=== PATIENT | male | born 1965 | race Caucasian/White ===

== ENCOUNTER 2022-09-02 12:33 | Emergency (ER) | payer MEDICAID, OTHER ==
[~2022-09-02] VITALS: Ht 160 cm; Wt 79.4 kg
[2022-09-02 12:39] VITALS: BP 143/94
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
[2022-09-02] MEDS ORDERED: METH-1681 PO (13:54)
[2022-09-02] MEDS ORDERED: IBUP-2213 PO (13:54)
[2022-09-02] MEDS ORDERED: BACI28.43 TP (13:54)
[2022-09-02] MEDS ORDERED: IBUPROFEN 600 MG TAB PO ONE (13:55)
== END 2022-09-02 14:05 | disposition home or self-care (01) ==
LOC: MED 12:33
DX: S16.1XXA Strain of muscle, fascia and tendon at neck level, initial encounter (principal); S00.83XA Contusion of other part of head, initial encounter; S50.312A Abrasion of left elbow, initial encounter; S50.812A Abrasion of left forearm, initial encounter; S30.1XXA Contusion of abdominal wall, initial encounter; Z79.899 Other long term (current) drug therapy; Z79.1 Long term (current) use of non-steroidal anti-inflammatories (NSAID); Z79.2 Long term (current) use of antibiotics; Y04.8XXA Assault by other bodily force, initial encounter; Y93.89 Activity, other specified; Y92.89 Other specified places as the place of occurrence of the external cause; Y99.8 Other external cause status
CPT/HCPCS: 99283

== ENCOUNTER 2022-10-31 12:44 | Emergency (ER) | payer OTHER ==
[~2022-10-31] VITALS: Ht 160 cm; Wt 80.3 kg
[~2022-10-31 12:44] MED LIST: BACI28.43 TP; IBUP-2213 PO; METH-1681 PO
[2022-10-31 13:12] VITALS: BP 141/80
[2022-10-31] MEDS ORDERED: FLUORESCEIN OPTH STRIP 1 MG OP ONE (13:45)
[2022-10-31] MEDS ORDERED: OFLOS LEFT EYE (14:06)
--- NOTE | 2022-10-31 14:25 | NUR ---
Patient discharged with v/s stable. Written and verbal after care instructions given and explained. Patient alert, oriented and verbalized understanding of instructions. Ambulatory with steady gait. All questions addressed prior to discharge. ID band removed. Patient advised to follow up with PMD. Rx of OFLOXACIN given. Patient educated on indication of medication including possible reaction and side effects. Opportunity to ask questions provided and answered.
== END 2022-10-31 14:23 | disposition home or self-care (01) ==
LOC: MED 12:44
DX: H11.002 Unspecified pterygium of left eye (principal); I10 Essential (primary) hypertension; Z79.899 Other long term (current) drug therapy; Z79.2 Long term (current) use of antibiotics; Z79.1 Long term (current) use of non-steroidal anti-inflammatories (NSAID)
CPT/HCPCS: 99283

== ENCOUNTER 2024-01-15 02:30 | Emergency (ER) | payer OTHER ==
[~2024-01-15] VITALS: Ht 160 cm; Wt 79.4 kg
[~2024-01-15 02:30] MED LIST changes: +OFLOS LEFT EYE
[2024-01-15 02:33] VITALS: BP 204/115; PULSE 77; RESP 18; TEMP 97.1; O2SAT 100
[2024-01-15 02:56] LABS: BASOPHILS # (AUTO) 0.1 K/uL (0.00-0.22); BASOPHILS % (AUTO) 0.4 % (0.0-2.0); EOSINOPHILS % (AUTO) 0.3 % (0.0-4.0); HEMATOCRIT 45.3 % (36-52); HEMOGLOBIN 15.1 g/dL (12.0-18.0); LYMPHOCYTES # (AUTO) 4.5 K/uL (2.0-11.5); LYMPHOCYTES % (AUTO) 32.6 % (20.5-51.1); MEAN CORPUSCULAR HEMOGLOBIN 30 pg (27-31); MEAN CORPUSCULAR HGB CONC 33 g/dL (33-37); MEAN CORPUSCULAR VOLUME 88.7 fL (80-94); MONOCYTES # (AUTO) 1.5 K/uL (0.8-1.0); MONOCYTES % (AUTO) 11.1 % (1.7-9.3); NEUTROPHILS # (AUTO) 7.7 K/uL (1.8-7.7); NEUTROPHILS % (AUTO) 55.6 % (42.2-75.2); PLATELET COUNT (AUTO) 239 K/uL (140-450); RED BLOOD CELL COUNT(AUTO) 5.11 MIL/uL (4.20-6.10); RED CELL DISTRIBUTION WIDTH 13.4 % (11.6-13.7); WHITE BLOOD COUNT (AUTO) 13.9 K/uL (4.8-10.8)
[2024-01-15 03:01] LABS: ANION GAP 12.3 (8-16); CALCIUM 9.2 mg/dL (8.5-10.1); CREATININE 1.2 mg/dL (0.6-1.3); POTASSIUM 3.3 mmol/L (3.5-5.1)
[2024-01-15 03:05] LABS: ALBUMIN 4.1 g/dL (3.4-5.0); BILIRUBIN,DIRECT 0.2 mg/dL (0.0-0.3); TOTAL BILIRUBIN 0.7 mg/dL (0.0-1.0); TOTAL PROTEIN, SERUM 7.9 g/dL (6.4-8.2)
[2024-01-15 03:23] LABS: APPEARANCE,URINE CLEAR (CLEAR); BILIRUBIN,URINE NEGATIVE (NEGATIVE); BLOOD, URINE 2+ (NEGATIVE); COLOR,URINE YELLOW (YELLOW); LEUKOCYTE ESTERASE ,URINE NEGATIVE (NEGATIVE); NITRITE, URINE NEGATIVE (NEGATIVE); PH,URINE 7.5 (5.0-9.0); PROTEIN,URINE TRACE (NEGATIVE); UGLUCOSE NEGATIVE (NEGATIVE); UROBILINOGEN,URINE 0.2 EU/dL (0.2 - 1)
[2024-01-15] MEDS: KETOROLAC 30 MG/ML VIAL IM ONE (03:25)
[2024-01-15] MEDS: hydrALAZINE 20 MG/ML VIAL IM ONE (03:27)
[2024-01-15 03:33] LABS: RBC,URINE 11-20 (MOD) /HPF (0-5); WBC,URINE 0-5 /HPF (0-5)
[2024-01-15 03:34] LABS: BACTERIA,URINE 10-30 (MOD) /HPF (None Seen); MUCUS,URINE 1+ /LPF (None Seen); SQUAMOUS EPITHELIAL CELL,UR 0-3 (FEW) /LPF (0-3 (FEW))
[2024-01-15] MEDS ORDERED: cefTRIAXone 1,000 MG VIAL ONE (06:00)
[2024-01-15] MEDS: NACL 0.9% 1,000 ML IV ONE (06:13)
[2024-01-15] MEDS: MORPHINE SULFATE 4 MG/ML SYR IVP ONE (06:33)
[2024-01-15] MEDS: ONDANSETRON 4 MG/2 ML VIAL IVP ONE (06:37)
[2024-01-15] MEDS ORDERED: TAMS0.4C96 PO (06:54)
[2024-01-15] MEDS ORDERED: IBUP-2218 PO (06:54)
[2024-01-15] MEDS ORDERED: ACET-10509 PO (06:54)
[2024-01-15] MEDS ORDERED: CEPH-588 PO (06:57)
[2024-01-15 06:59] VITALS: BP 173/101; PULSE 76; RESP 18; TEMP 97.1; O2SAT 100
[2024-01-19] MEDS ORDERED: LISI-953 PO (03:09)
[2024-01-20] MEDS ORDERED: ACET-9527 PO (14:43)
== END 2024-01-15 06:59 | disposition home or self-care (01) ==
LOC: MED 02:30
DX: N39.0 Urinary tract infection, site not specified (principal); D72.829 Elevated white blood cell count, unspecified; I10 Essential (primary) hypertension; Z79.899 Other long term (current) drug therapy; Z90.49 Acquired absence of other specified parts of digestive tract
CPT/HCPCS: 36415; 74176; 80048; 80076; 81001; 83690; 85025; 87040; 96365; 96372; 96375; 99285; J0360; J0696; J1885; J2270; J2405; J7030